=== PATIENT | male | born 1980 | race Caucasian/White ===

== ENCOUNTER 2019-09-03 17:48 | Emergency (ER) | payer BC, MEDICAID ==
--- NOTE | 2019-09-03 19:36 | UC ---
Respiratory Complaint HPI - HPI Summary HPI Summary: Patient is a 38yo male with PMH of htn, emphysema, and asthma presenting with niece for "concern for pneumonia." Patient states he has symptoms similar to when he had pneumonia in the past. Notes increasing sputum productive that "looks like nasty shit." Patient states it is more than usual. Also notes increasing SOB and wheezing. Also notes sore throat. Denies other URI symptoms. Denies fever and chills. Does note intermittent nausea but states that "he gets nauseous when this happens." Denies decreased appetite and fatigue. Patient states he lost his inhaler and has not been able to use it. Patient is also a heavy everyday smoker. - History of Current Complaint Chief Complaint: UCRespiratory Stated Complaint: SORE THROAT,COUGH,SOB Hx Obtained From: Patient Pain Intensity: 0 - Risk Factors Cardiac Risk Factors: Hypertension - Allergies/Home Medications Allergies/Adverse Reactions: Allergies Allergy/AdvReac Type Severity Reaction Status Date / Time No Known Allergies Allergy Verified 09/03/19 18:07 Home Medications: Home Medications Chlorthalidone TAB* [Hygroton TAB*] 25 mg DAILY 09/03/19 [History Confirmed 07/13] Hydrocodone/Acetaminophen [Vicodin Es 7.5-300 mg Tablet] 1 each PO QID 09/03/19 [History Confirmed 09/03/19] Metoprolol Succinate [Toprol Xl] 100 mg PO DAILY 09/03/19 [History Confirmed 07/13] dilTIAZem HCl [Cartia Xt] 180 mg PO DAILY 09/03/19 [History Confirmed 09/03/19] PMH/Surg Hx/FS Hx/Imm Hx Cardiovascular History: Hypertension Respiratory History: COPD, Asthma - Surgical History Surgical History: Yes Surgery Procedure, Year, and Place: NECK LYMPH NODES REMOVED. GROIN LYMPH NODES REMOVED. throat reconstruction 11/2017 - Family History Known Family History: Positive: None - Social History Alcohol Use: None Alcohol Amount: quit 2004 Substance Use Type: None Smoking Status (MU): Heavy Every Day Tobacco Smoker Type: Cigarettes Amount Used/How Often: 1-2 PPD Length of Time of Smoking/Using Tobacco: 24 Years Have You Smoked in the Last Year: Yes When Did the Patient Quit Smoking/Using Tobacco: 2 weeks ago - Immunization History Most Recent Influenza Vaccination: none Review of Systems All Other Systems Reviewed And Are Negative: Yes Constitutional: Positive: Negative. Negative: Fever, Chills, Fatigue ENT: Positive: Sore Throat. Negative: Sinus Congestion Respiratory: Positive: Shortness Of Breath, Cough - productive cough of purulent sputum, Other - wheezing Cardiovascular: Positive: Negative Gastrointestinal: Positive: Nausea. Negative: Abdominal Pain, Vomiting Musculoskeletal: Positive: Negative Neurological: Positive: Negative Physical Exam Triage Information Reviewed: Yes Appearance: Well-Appearing, No Pain Distress, Well-Nourished, Obese Vital Signs: Initial Vital Signs Temp 98.2 F 09/03/19 18:03 Pulse 93 09/03/19 18:03 Resp 20 09/03/19 18:03 BP 129/75 09/03/19 18:03 Pulse Ox 98 09/03/19 18:03 Vital Signs Reviewed: Yes Eyes: Positive: Conjunctiva Clear ENT: Positive: Hearing grossly normal, Pharyngeal erythema, TMs normal, Uvula midline. Negative: Nasal congestion, Nasal drainage, Tonsillar swelling, Tonsillar exudate, Sinus tenderness Neck exam: Normal Neck: Positive: Supple, Nontender, No Lymphadenopathy Respiratory: Positive: No respiratory distress, No accessory muscle use, Wheezing, Expiration - faint diffuse expiratory wheezing. Negative: Crackles, Rhonchi, Stridor Cardiovascular Exam: Normal Cardiovascular: Positive: RRR Neurological: Positive: Alert Psychological: Positive: Age Appropriate Behavior Skin Exam: Normal Respiratory Course/Dx - Course Course Of Treatment: Patient presenting with increasing purulent sputum production with cough and increasing SOB and wheezing with h/o of COPD, asthma, htn, and smoking. Initial CXR read as negative. Informed him that he will be notified with any abnormalities found on final report. I treated for COPD exacerbation with doxycycline, prednisone, and albuterol inhaler. Also prescribed zofran for nausea. Instructed to follow up with pcp within the next week for reevaluation and instructed to go to the ED with any new or worsening symptoms. Patient voiced understanding and agreed with treatment plan. - Differential Dx/Diagnosis Differential Diagnosis/HQI/PQRI: Exacerbation Of COPD, Other - pneumonia Provider Diagnosis: COPD exacerbation Discharge ED - Sign-Out/Discharge Documenting (check all that apply): Patient Departure All imaging exams completed and their final reports reviewed: No - Discharge Plan Condition: Stable Disposition: HOME Prescriptions: Albuterol HFA INHALER* [Ventolin HFA Inhaler*] 1 - 2 puff INH Q6H PRN #1 mdi PRN Reason: Sob/Wheezing DOXYcycline CAP(*) [DOXYcycline 100MG CAP(*)] 100 mg PO BID #14 cap Ondansetron ODT TAB* [Zofran 4 MG Odt TAB*] 4 mg PO Q8H PRN #12 tab.odt PRN Reason: Nausea/Vomiting predniSONE TAB* [Deltasone 20 MG TAB*] 20 mg PO SEE INSTRUCTIONS 9 Days #18 tab Patient Education Materials: COPD (Chronic Obstructive Pulmonary Disease) (ED) Referrals: [facility] [Outside] [facility] [Outside] Additional Instructions: Take the doxycycline and prednisone as prescribed for your COPD exacerbation. Use your inhaler as needed for shortness of breath. Follow up with your primary care provider within the next week for reevaluation. Go to the nearest emergency room with any new or worsening symptoms. - Billing Disposition and Condition Condition: STABLE Disposition: Home
[2019-09-03 20:07] VITALS: BP 117/71
--- NOTE | 2019-09-04 07:43 | UC ---
- Progress Note Progress Note: chest xray report: IMPRESSION: No acute cardiopulmonary process by radiograph Course/Dx - Diagnoses Provider Diagnoses: COPD exacerbation Discharge ED - Sign-Out/Discharge Documenting (check all that apply): Patient Departure All imaging exams completed and their final reports reviewed: Yes - Discharge Plan Condition: Stable Disposition: HOME Prescriptions: Albuterol HFA INHALER* [Ventolin HFA Inhaler*] 1 - 2 puff INH Q6H PRN #1 mdi PRN Reason: Sob/Wheezing DOXYcycline CAP(*) [DOXYcycline 100MG CAP(*)] 100 mg PO BID #14 cap Ondansetron ODT TAB* [Zofran 4 MG Odt TAB*] 4 mg PO Q8H PRN #12 tab.odt PRN Reason: Nausea/Vomiting predniSONE TAB* [Deltasone 20 MG TAB*] 20 mg PO SEE INSTRUCTIONS 9 Days #18 tab Patient Education Materials: COPD (Chronic Obstructive Pulmonary Disease) (ED) Referrals: [facility] [Outside] [facility] [Outside] Additional Instructions: Take the doxycycline and prednisone as prescribed for your COPD exacerbation. Use your inhaler as needed for shortness of breath. Follow up with your primary care provider within the next week for reevaluation. Go to the nearest emergency room with any new or worsening symptoms. - Billing Disposition and Condition Condition: STABLE Disposition: Home
== END 2019-09-03 20:29 | disposition home or self-care (01) ==
LOC: UCCORT 17:48
DX: J44.1 Chronic obstructive pulmonary disease with (acute) exacerbation (principal); I10 Essential (primary) hypertension; F17.210 Nicotine dependence, cigarettes, uncomplicated
CPT/HCPCS: 71046; 99202; G0463